=== PATIENT | female | born 1965 | race Caucasian/White ===

== ENCOUNTER 2024-01-16 08:59 | Outpatient (CLI) | payer OTHER | END 2024-01-16 09:00 | disposition home or self-care (01) | LOC: BICMAMMO 08:59 | PROVIDERS: ATTEND Nurse Practitioner Family | DX: Z13.820 Encounter for screening for osteoporosis (principal); M85.89 Other specified disorders of bone density and structure, multiple sites | CPT/HCPCS: 77080 ==